=== PATIENT | female | born 1995 | race Caucasian/White ===

== ENCOUNTER 2021-01-09 10:35 | Emergency (ER) | payer OTHER, MEDICAID ==
[~2021-01-09] VITALS: Ht 157.5 cm; Wt 56.7 kg
[2021-01-09] MEDS ORDERED: FLEXERIL PO (12:26)
[2021-01-09 12:32] VITALS: BP 125/73
== END 2021-01-09 12:34 | disposition home or self-care (01) ==
LOC: M.ERS 10:35
DX: S16.1XXA Strain of muscle, fascia and tendon at neck level, initial encounter (principal); F17.210 Nicotine dependence, cigarettes, uncomplicated; W22.8XXA Striking against or struck by other objects, initial encounter; Y93.89 Activity, other specified; Y92.89 Other specified places as the place of occurrence of the external cause; Y99.8 Other external cause status

== ENCOUNTER 2021-04-26 09:40 | Emergency (ER) | payer OTHER, MEDICAID ==
[~2021-04-26] VITALS: Ht 157.5 cm; Wt 56.7 kg
[~2021-04-26 09:40] MED LIST: FLEXERIL PO
[2021-04-26 10:24] LABS: URINE BILIRUBIN NEGATIVE (Negative); URINE BLOOD NEGATIVE (Negative); URINE CLARITY CLEAR; URINE COLOR YELLOW; URINE GLUCOSE-RANDOM NEGATIVE (Negative); URINE KETONES NEGATIVE (Negative); URINE LEUKOCYTES NEGATIVE (Negative); URINE NITRITE NEGATIVE (Negative); URINE PROTEIN NEGATIVE (Negative); URINE SPECIFIC GRAVITY 1.015 (1.005-1.030); URINE UROBILINOGEN 0.2 E.U./dl (0.2-1.0)
[2021-04-26 10:26] LABS: ABSOLUTE BASOPHILS 0.1 thou/uL (0.0-0.2); ABSOLUTE EOSINOPHILS 0.5 thou/uL (0.0-0.7); ABSOLUTE LYMPHOCYTES 2.6 thou/uL (0.8-5.3); ABSOLUTE MONOCYTES 0.7 thou/uL (0.0-1.2); ABSOLUTE NEUTROPHILS 5.5 thou/uL (1.6-8.1); BASOPHILS 0.8 %; EOSINOPHILS 5.5 %; HEMOGLOBIN 15.5 gm/dL (12.0-15.0); LYMPHOCYTES 27.5 %; MCH 30.2 pg (26.0-34.0); MCHC 33.7 g/dL (28.0-37.0); MCV 89.5 fL (80.0-100.0); MPV 10.8 fl. (7.2-11.1); NUCLEATED RBCS 0 /100WBC; PLATELET COUNT* 246 thou/uL (150-400); POLYS 59.2 %; RBC 5.13 mil/uL (4.20-5.00); RDW-CV 12.7 % (10.5-14.5); WBC 9.3 thou/uL (4.0-11.0)
[2021-04-26 10:33] LABS: CALCIUM 9.1 mg/dL (8.5-10.1); CREATININE 0.8 mg/dL (0.6-1.3); POTASSIUM 3.8 mmol/L (3.5-5.1)
[2021-04-26 10:38] LABS: ALBUMIN 4.5 g/dL (3.4-5.0); TOTAL BILIRUBIN 0.5 mg/dL (<0.1-1.0)
[2021-04-26 11:14] LABS: TOTAL PROTEIN 8.3 g/dL (6.4-8.2)
[2021-04-26 12:23] VITALS: BP 109/62
== END 2021-04-26 12:23 | disposition home or self-care (01) ==
LOC: M.ERS 09:40
PROVIDERS: Physician Assistant
DX: R10.11 Right upper quadrant pain (principal); F17.210 Nicotine dependence, cigarettes, uncomplicated

== ENCOUNTER 2021-05-04 11:46 | Emergency (ER) | payer OTHER, MEDICAID ==
[~2021-05-04] VITALS: Ht 157.5 cm; Wt 66.2 kg
[2021-05-04] MEDS ORDERED: HYDROCODON-ACE1 EAC7 PO (14:18)
[2021-05-04] MEDS ORDERED: CEPHALEXIN500 MG PO (14:18)
[2021-05-04 14:37] VITALS: BP 112/71
== END 2021-05-04 14:38 | disposition home or self-care (01) ==
LOC: M.ERS 11:46
DX: S61.210A Laceration without foreign body of right index finger without damage to nail, initial encounter (principal); S61.216A Laceration without foreign body of right little finger without damage to nail, initial encounter; S61.212A Laceration without foreign body of right middle finger without damage to nail, initial encounter; S61.214A Laceration without foreign body of right ring finger without damage to nail, initial encounter; S66.106A Unspecified injury of flexor muscle, fascia and tendon of right little finger at wrist and hand level, initial encounter; F17.210 Nicotine dependence, cigarettes, uncomplicated; Z98.890 Other specified postprocedural states; W26.0XXA Contact with knife, initial encounter; Y93.89 Activity, other specified; Y92.89 Other specified places as the place of occurrence of the external cause; Y99.8 Other external cause status